=== PATIENT | female | born 1955 | race African-American/Black ===

== ENCOUNTER 2023-03-01 16:06 | Outpatient (REF) | payer MEDICARE, MEDICAID, SELFPAY ==
[2023-03-01 16:55] LABS: Estimated Average Glucose 114 mg/dL; Hemoglobin A1C 150.8676 umol/L; Hemoglobin A1c % 5.6 %
[2023-03-01 16:58] LABS: Creatinine Urine 143.72 mg/dL; Microalbum/Creatinine Ratio Ur 22.9 ug/mg cr
[2023-03-01 17:29] LABS: Alanine Aminotransferase 22 U/L (0-31); Albumin Level 4.4 g/dL (3.5-5.0); Alkaline Phosphatase 92 U/L (39-117); Anion Gap 15 (12-20); Aspartate Amino Transferase 28 U/L (5-31); Blood Urea Nitrogen 9 mg/dL (9-16); Calcium 10.1 mg/dL (8.4-10.2); Carbon Dioxide 27 mmol/L (22-29); Chloride 107 mmol/L (96-108); Cholesterol 223 mg/dL; Estimated Glomerular Filt Rate 59; Glucose Random 97 mg/dL (60-115); HDL Cholesterol 32 mg/dL; LDL Cholesterol Calculated 150 mg/dl; Potassium 5.7 mmol/L (3.3-5.1); Sodium 143 mmol/L (135-145); Triglycerides 206 mg/dL
== END 2023-03-01 16:07 | disposition home or self-care (01) ==
LOC: HO.LAB 16:06
PROVIDERS: PCP Internal Medicine; Visit Provider Internal Medicine
DX: E78.2 Mixed hyperlipidemia (principal); I10 Essential (primary) hypertension; M75.42 Impingement syndrome of left shoulder; R73.01 Impaired fasting glucose
CPT/HCPCS: 36415; 80053; 80061; 82043; 83036